=== PATIENT | female | born 1960 | race Two or more races ===

== ENCOUNTER 2020-10-09 11:45 | Inpatient (IN) | payer OTHER ==
[~2020-10-09] VITALS: Ht 157.5 cm; Wt 39.9 kg
[2020-10-09] MEDS ORDERED: COZAAR50 MG PO (13:33)
[2020-10-09] MEDS ORDERED: METFORMIN HCL500 M3 PO (13:34)
[2020-10-09] MEDS ORDERED: ALENDRONATE SOD35 MG PO (13:34)
[2020-10-09] MEDS ORDERED: TENORMIN25 MG PO (15:09)
== END 2020-10-19 13:23 | disposition home or self-care (01) | DRG 741 ==
LOC: OB/GYN 10-16 05:11 → O/R 10-16 05:11 → SURH 10-16 11:45 → OB/GYN 10-16 15:36 → SURH 10-16 18:45 → OB/GYN 10-19 13:23
PROVIDERS: ADMIT Obstetrics & Gynecology Gynecologic Oncology; ATTEND Obstetrics & Gynecology Gynecologic Oncology
PROC: 0UT20ZZ Resection of Bilateral Ovaries, Open Approach (ICD-10-PCS; 2020-10-16)
PROC: 0UT70ZZ Resection of Bilateral Fallopian Tubes, Open Approach (ICD-10-PCS; 2020-10-16)
PROC: 07BC0ZZ Excision of Pelvis Lymphatic, Open Approach (ICD-10-PCS; 2020-10-16)
PROC: 0UT90ZZ Resection of Uterus, Open Approach (ICD-10-PCS; principal; 2020-10-16 18:45)
DX: C54.1 Malignant neoplasm of endometrium (principal); C52 Malignant neoplasm of vagina; D36.0 Benign neoplasm of lymph nodes; N80.0 Endometriosis of uterus; I10 Essential (primary) hypertension; E08.9 Diabetes mellitus due to underlying condition without complications; Z79.84 Long term (current) use of oral hypoglycemic drugs